=== PATIENT | male | born 1980 | race African-American/Black ===

== ENCOUNTER 2017-03-17 10:44 | Emergency (ER) | payer BC, OTHER ==
[~2017-03-17] VITALS: Ht 195.6 cm; Wt 152.0 kg
[~2017-03-17 10:44] MED LIST: ZOFRAN ODT4 MG ORAL
[2017-03-17 10:58] VITALS: BP 116/80
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
[2017-03-17] MEDS ORDERED: IBUPROFEN600 MG ORAL (11:17)
[2017-03-17] MEDS ORDERED: TRAMADOL HCL50 MG ORAL (11:17)
[2017-03-17 11:23] VITALS: BP 116/80
== END 2017-03-17 11:27 | disposition home or self-care (01) ==
LOC: EMR 11:06
DX: S13.4XXA Sprain of ligaments of cervical spine, initial encounter (principal); S39.012A Strain of muscle, fascia and tendon of lower back, initial encounter; V43.52XA Car driver injured in collision with other type car in traffic accident, initial encounter; Y92.410 Unspecified street and highway as the place of occurrence of the external cause
CPT/HCPCS: 99284

== ENCOUNTER 2019-02-15 09:57 | Emergency (ER) | payer MEDICAID, OTHER ==
[~2019-02-15] VITALS: Ht 195.6 cm; Wt 154.2 kg
[~2019-02-15 09:57] MED LIST changes: +IBUPROFEN600 MG ORAL; +TRAMADOL HCL50 MG ORAL
[2019-02-15] MEDS ORDERED: NKM (10:06)
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
[2019-02-15 10:12] VITALS: BP 124/76
[2019-02-15] MEDS ORDERED: ROBAXIN-750750 MG PO (10:29)
[2019-02-15 10:33] VITALS: BP 122/74
--- NOTE | 2019-02-15 10:34 | NUR ---
ED Nurse Note: PT SITTING PEACEFULLY IN BED IN NAD. AOX4. PRESCRIPTION AND DISCHARGE PAPERWORK EXPLAINED TO PT. PT VERBALIZES UNDERSTANDING AND ALL QUESTIONS ANSWERED. PRESCRIPTION SENT ELECTRONICALLY TO PT'S PHARMACY. DISCHARGE PAPERWORK GIVEN TO PT AND ID WRISTBAND REMOVED. PT WALKED OUT OF ER WITH STEADY GAIT AND ALL BELONGINGS.
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
== END 2019-02-15 10:40 | disposition home or self-care (01) ==
LOC: EMR 10:36
DX: S16.1XXA Strain of muscle, fascia and tendon at neck level, initial encounter (principal); V49.9XXA Car occupant (driver) (passenger) injured in unspecified traffic accident, initial encounter; Y92.410 Unspecified street and highway as the place of occurrence of the external cause
CPT/HCPCS: 99282

== ENCOUNTER 2019-03-23 13:46 | Emergency (ER) | payer MEDICAID ==
[~2019-03-23] VITALS: Ht 195.6 cm; Wt 136.1 kg
[~2019-03-23 13:46] MED LIST changes: +NKM; +ROBAXIN-750750 MG PO
[2019-03-23 14:00] VITALS: BP 136/82
[2019-03-23] MEDS ORDERED: Tetanus/Diptheria/Pertussis IM ONE (14:30)
--- NOTE | 2019-03-23 14:41 | Emergency Room Report ---
History of Present Illness General Chief Complaint: Puncture Wound Source: Patient Present Illness HPI 38-year-old male presents to the emergency department complaining of 3 out of 10 severity localized pain to the bottom of the foot status post stepping on a maday nail while barefoot yesterday. Patient states he is not up-to-date with tetanus vaccination he denies bleeding at this time. Patient denies any blood thinning medications he reports tenderness upon palpation and mild exacerbation with walking. Allergies: Coded Allergies: NO KNOWN ALLERGIES (Unverified Allergy, Unknown, 08/21/15) Patient History Past Medical History: see triage record Past Surgical History: none Pertinent Family History: none Immunizations: other - not utd Reviewed Nursing Documentation: PMH: Agreed; PSxH: Agreed Nursing Documentation-PMH Past Medical History: No History, Except For Hx Diabetes: Yes - PRE DM Review of Systems All Other Systems: negative except mentioned in HPI Physical Exam Vital Signs Date Time Temp Pulse Resp B/P (MAP) Pulse Ox O2 Delivery O2 Flow Rate FiO2 03/23/19 14:00 98.2 60 16 136/82 94 Room Air Sp02 EP Interpretation: reviewed, normal General Appearance: no apparent distress, alert, GCS 15, non-toxic Head: normocephalic, atraumatic Eyes: bilateral eye normal inspection, bilateral eye PERRL ENT: hearing grossly normal, normal voice Neck: full range of motion Respiratory: lungs clear, normal breath sounds, speaking full sentences Cardiovascular #1: regular rate, rhythm Musculoskeletal: back normal, gait/station normal, normal range of motion, non- tender Neurologic: alert, oriented x3, responsive, motor strength/tone normal, sensory intact, speech normal, grossly normal Psychiatric: judgement/insight normal Skin: other - small 0.5 mm puncture wound with dry blood to the plantar aspect of the right foot. mild erythema surrounding, no warmth. Medical Decision Making PA Attestation Dr. Hartley is my supervising Physician whom patient management has been discussed with. Diagnostic Impression: Primary Impression: Puncture wound ER Course 38-year-old male presents to the emergency department complaining of 3 out of 10 severity localized pain to the bottom of the foot status post stepping on a maday nail while barefoot yesterday. Patient states he is not up-to-date with tetanus vaccination he denies bleeding at this time. Patient denies any blood thinning medications he reports tenderness upon palpation and mild exacerbation with walking. Ddx considered but are not limited to foreign body, tendon injury, cellulitis, Vital signs: are WNL, pt. is afebrile H&PE are most consistent with: Puncture wound of bottom of the right foot. no evidence of foreign body ORDERS: none required at this time, the diagnosis is clinical ED INTERVENTIONS: -Tetanus vaccine was administered as pt. vaccination status was unknown. - The wound was copiously irrigated with normal saline, and explored for foreign body for which no FB was found. - Discussed with patient that we will be treating him with oral antibiotics. DISCHARGE: At this time pt. is stable for d/c to home. Will provide printed patient care instructions, and any necessary prescriptions. Care plan and follow up instructions have been discussed with the patient prior to discharge. Last Vital Signs Date Time Temp Pulse Resp B/P (MAP) Pulse Ox O2 Delivery O2 Flow Rate FiO2 03/23/19 14:00 98.2 60 16 136/82 (100) 94 Room Air Disposition: HOME, SELF-CARE Condition: Stable Scripts Bacitracin/Polymyxin B Sulfate (BACITRACIN-POLYMYXIN OINTMENT) 28.35 Gm Oint...g. 1 APPLIC TP BID, #28.3 GM Prov: Tosha Rosa 03/23/19 Cephalexin* (KEFLEX*) 500 Mg Capsule 500 MG ORAL EVERY 12 HOURS for 7 Days, #14 CAP 0 Refills Prov: Tosha Rosa 03/23/19 Patient Instructions: Puncture Wound Additional Instructions: Take medications as directed. Follow up with a Primary Care Provider in 3-5 days, even if your symptoms have resolved. --Please review list of primary care clinics, if you do not already have a primary care provider Return sooner to ED if new symptoms occur, or current symptoms become worse. - Please note that this Emergency Department Report was dictated using [employer] teacher technology software, occasionally this can lead to erroneous entry secondary to interpretation by the dictation equipment. Tosha Rosa Mar 23, 2019 14:41
[2019-03-23] MEDS ORDERED: CEPHALEXIN500 MG ORAL (14:43)
[2019-03-23] MEDS ORDERED: BACITRACIN-P28.35 GM TP (14:43)
[2019-03-23] MEDS ORDERED: Bacitracin Oint UD TOPIC ONE (14:45)
[2019-03-23 14:51] VITALS: BP 128/69
--- NOTE | 2019-03-23 14:51 | NUR ---
ER DISCHARGE NOTE: Patient is cleared to be discharged per PA, pt is aox4, on room air, with stable vital signs. pt was given dc and prescription instructions, pt was able to verbalize understanding, pt id band removed. pt is able to ambulate with steady gait. pt took all belongings.
== END 2019-03-23 14:51 | disposition home or self-care (01) ==
LOC: EMR 14:40
DX: S91.331A Puncture wound without foreign body, right foot, initial encounter (principal); R73.03 Prediabetes; Z23 Encounter for immunization; W45.0XXA Nail entering through skin, initial encounter; Y92.9 Unspecified place or not applicable
CPT/HCPCS: 90471; 90715; 99283

== ENCOUNTER 2020-11-25 21:04 | Inpatient (IN) | payer MEDICAID, OTHER ==
[~2020-11-25] VITALS: Ht 195.6 cm; Wt 149.7 kg
[~2020-11-25 21:04] MED LIST changes: +BACITRACIN-P28.35 GM TP; +CEPHALEXIN500 MG ORAL
--- NOTE | 2020-11-25 21:27 | Emergency Room Report ---
History of Present Illness General Chief Complaint: Lower Extremity Injury Present Illness HPI Patient is a 40-year-old male who presents for increased right-sided lower extremity discomfort. Reports having pain to his groin area. Denies any recent trauma. Reports having prior history of deep venous thrombosis. States he is not taking any medications currently. Denies any other locations of pain. Denies taking any medications regularly. 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 (Lee Salazar MD) Patient History Past Medical History: see triage record Reviewed Nursing Documentation: PMH: Agreed; PSxH: Agreed (Lee Salazar MD) Nursing Documentation-PMH Hx Diabetes: Yes - PRE DM (Lee Salazar MD) Review of Systems All Other Systems: negative except mentioned in HPI (Lee Salazar MD) Physical Exam Vital Signs Date Time Temp Pulse Resp B/P (MAP) Pulse Ox O2 Delivery O2 Flow Rate FiO2 11/25/20 21:09 98.6 100 18 118/79 (92) 96 Room Air Sp02 EP Interpretation: reviewed, normal General Appearance: normal inspection, well appearing, no apparent distress, alert, GCS 15 Head: atraumatic ENT: normal ENT inspection, hearing grossly normal, normal voice Neck: normal inspection, full range of motion, supple, no bony tend Respiratory: normal inspection, lungs clear, normal breath sounds, no respiratory distress, no retraction, no wheezing Cardiovascular #1: regular rate, rhythm, edema - trace edema to right leg Gastrointestinal: normal inspection, normal bowel sounds, non tender, soft, no guarding, no hernia Genitourinary: no CVA tenderness Musculoskeletal: normal inspection, back normal, normal range of motion Neurologic: alert, motor strength/tone normal, stamping mill tender III-XII nml as tested, oriented x3, responsive, speech normal, normal inspection Psychiatric: normal inspection, judgement/insight normal, mood/affect normal Skin: other - left lower extremity hyperpigmented lesion with skin thickening. (Lee Salazar MD) Medical Decision Making Diagnostic Impression: Primary Impression: DVT (deep venous thrombosis) ER Course Patient presents for right lower extremity discomfort. Differential diagnosis include was not limited to muscle injury, deep venous thrombosis, lymphadenitis among others. Patient has some chronic varicose veins to his lower extremities. There does appear to be some slight increase swelling to the right lower ext remity compared to the left. Patient does not have any evidence of pulmonary embolism and does not have any respiratory difficulty or chest discomfort. Patient was endorsed to Dr. Regan pending ultrasound imaging for possible deep venous thrombosis. Patient with normal oxygen saturation at this time. Will defer final disposition until ultrasound imaging. (Lee Salazar MD) ER Course Patient was signed out to me by the previous physician. Ultrasound of the right lower extremity revealed a large occlusive DVT from proximal femoral vein extending to the popliteal vein. This information was relayed to the patient. He was amenable to admission. He was given a dose of subcutaneous therapeutic dose Lovenox. Admitted to [facility] under the care of Dr. Rodarte. (Luis Regan M.D.) Last Vital Signs Date Time Temp Pulse Resp B/P (MAP) Pulse Ox O2 Delivery O2 Flow Rate FiO2 11/25/20 21:09 98.6 100 18 118/79 (92) 96 Room Air Status: unchanged (Lee Salazar MD) Disposition: ADMITTED INPATIENT Condition: Stable Lee Salazar MD Nov 25, 2020 21:27 Luis Regan M.D. Nov 25, 2020 23:34
[2020-11-25] MEDS ORDERED: IBUPROFEN600 M1 ORAL (22:18)
--- NOTE | 2020-11-25 22:32 | Diagnostic Imaging Report ---
EXAM: US Duplex Right Lower Extremity Veins CLINICAL HISTORY: PAIN TECHNIQUE: Real-time duplex ultrasound scan of the right lower extremity veins integrating B-mode two-dimensional vascular structure, Doppler spectral analysis, color flow Doppler imaging and compression. COMPARISON: No relevant prior studies available. FINDINGS: Deep veins: Large occlusive DVT from proximal femoral vein through popliteal veins. Superficial veins: Unremarkable. No thrombus in the visualized great saphenous vein. Soft tissues: No acute findings. No popliteal cyst. IMPRESSION: Large occlusive DVT from proximal femoral vein through popliteal veins. <MYCVCSECTION> Communications: 11/25/20 22:36 Call Doctor Regarding Acute DVT, called Dr. Bowser on 11/25 22:36 (-07:00)
--- NOTE | 2020-11-25 22:50 | NUR ---
ED Nurse Note: BLOOD COLLECTED AND SENT TO LAB
[2020-11-25 23:12] LABS: BASOPHILS % (AUTO) 0.8 % (0.0-2.0); EOSINOPHILS % (AUTO) 1.7 % (0.0-3.0); HEMATOCRIT 52.2 % (42.0-52.0); HEMOGLOBIN 15.4 G/DL (14.2-18.0); LYMPHOCYTES % (AUTO) 19.9 % (20.0-45.0); MEAN CORPUSCULAR VOLUME 84 FL (80-99); MONOCYTES % (AUTO) 9.6 % (1.0-10.0); PLATELET COUNT 177 K/UL (150-450); RED BLOOD COUNT 6.22 M/UL (4.70-6.10); RED CELL DISTRIBUTION WIDTH 13.9 % (11.6-14.8); WHITE BLOOD COUNT 11.5 K/UL (4.8-10.8)
[2020-11-25 23:21] LABS: ANION GAP 7 mmol/L (5-15); BLOOD UREA NITROGEN 15 mg/dL (7-18); CALCIUM 9.6 MG/DL (8.5-10.1); CARBON DIOXIDE 31 MMOL/L (21-32); CHLORIDE 102 MMOL/L (98-107); CREATININE 1.4 MG/DL (0.55-1.30); SODIUM 140 MMOL/L (136-145)
[2020-11-25 23:26] LABS: ALANINE AMINOTRANSFERASE 28 U/L (12-78); ALBUMIN 3.4 G/DL (3.4-5.0); ALBUMIN/GLOBULIN RATIO 0.9 (1.0-2.7); ALKALINE PHOSPHATASE 111 U/L (46-116); ASPARTATE AMINO TRANSFERASE 22 U/L (15-37); BILIRUBIN,TOTAL 0.8 MG/DL (0.2-1.0)
[2020-11-25] MEDS: Enoxaparin 120 mg inj SUBQ SCH (23:31)
[2020-11-25 23:46] VITALS: BP 120/68
--- NOTE | 2020-11-25 23:53 | NUR ---
TRANSFER TO FLOOR: Patient transferred to [facility] MED SURG as ordered, per ED MD. Report given to AVINASH LANDIN. Belongings with patient refused offer to put in hospital safe personal belongings form filled and signed, pt aox4, and stable
--- NOTE | 2020-11-26 00:16 | NUR ---
NURSE NOTES: paged Dr Rodarte for admission orders. Awaiting call back. Patient stable, no s/s of acute distress, VSS. Enoxaparin ED order to be administered on floor.
[2020-11-26 00:20] VITALS: BP 135/87
[2020-11-26] MEDS: Enoxaparin 120 mg inj SUBQ SCH (00:36)
--- NOTE | 2020-11-26 01:55 | NUR ---
NURSE NOTES: Called Dr Rodarte's exchange, awaiting call back for admission orders.
--- NOTE | 2020-11-26 03:45 | NUR ---
NURSE NOTES: Paged Dr Rodarte again through exchange, awaiting call back. Patient desires pain medication at this time.
[2020-11-26 04:00] VITALS: BP 127/88
[2020-11-26] MEDS: Morphine Sulfate 2mg/ml Inj(IV/IM USE ONLY) IVP PRN ×3 (05:50→22:10)
--- NOTE | 2020-11-26 07:27 | NUR ---
NURSE NOTES: Report given to [employer] Ascencio
--- NOTE | 2020-11-26 07:57 | NUR ---
NURSE NOTES: Patient awake and alert and oriented,respirations unlabored.Saline lock left arm in place.Pedal are strong.patient ate breakfast.IV fluids to be started as ordered.Call light within reach.
[2020-11-26 08:00] VITALS: BP 126/79
[2020-11-26] MEDS: D5 1/2NS 1,000 ML IV SCH (09:08)
[2020-11-26 10:11] LABS: BASOPHILS % (AUTO) 0.9 % (0.0-2.0); EOSINOPHILS % (AUTO) 2.9 % (0.0-3.0); HEMATOCRIT 47.3 % (42.0-52.0); HEMOGLOBIN 14.7 G/DL (14.2-18.0); LYMPHOCYTES % (AUTO) 27.5 % (20.0-45.0); MEAN CORPUSCULAR VOLUME 84 FL (80-99); MONOCYTES % (AUTO) 11.5 % (1.0-10.0); NEUTROPHILS % (AUTO) 57.3 % (45.0-75.0); PLATELET COUNT 176 K/UL (150-450); RED BLOOD COUNT 5.61 M/UL (4.70-6.10); RED CELL DISTRIBUTION WIDTH 13.4 % (11.6-14.8); WHITE BLOOD COUNT 8.6 K/UL (4.8-10.8)
[2020-11-26 10:23] LABS: INR 1.1 (0.9-1.1)
[2020-11-26 10:40] LABS: ANION GAP 6 mmol/L (5-15); BLOOD UREA NITROGEN 14 mg/dL (7-18); CARBON DIOXIDE 29 MMOL/L (21-32); CHLORIDE 105 MMOL/L (98-107); CREATININE 1.2 MG/DL (0.55-1.30); POTASSIUM 3.8 MMOL/L (3.5-5.1); SODIUM 140 MMOL/L (136-145)
[2020-11-26] MEDS: Enoxaparin Sodium 300mg/3ml vial SUBQ SCH ×2 (10:49→20:32)
[2020-11-26] MEDS ORDERED: Mylanta II UD 30ml ORAL PRN (11:30)
[2020-11-26] MEDS ORDERED: Milk of Magnesia 30ml Ud ORAL PRN (11:30)
[2020-11-26 12:00] VITALS: BP 119/62
--- NOTE | 2020-11-26 12:39 | NUR ---
INSURANCE CLINICALS FAXED TO [facility] PPO REF [phone] [facility] [phone] FAX [phone]
--- NOTE | 2020-11-26 13:12 | Consultation ---
History of Present Illness General Chief Complaint: Lower Extremity Injury Present Illness Allergies: Coded Allergies: NO KNOWN ALLERGIES (Unverified Allergy, Unknown, 08/21/15) Medication History Scheduled Bacitracin/Polymyxin B Sulfate (Bacitracin-Polymyxin Ointment), 1 APPLIC TP BID Cephalexin* (Keflex*), 500 MG ORAL EVERY 12 HOURS Methocarbamol* (Robaxin-750*), 750 MG PO TID No Known Medications* (NKM - No Known Medications*), 0 ., (Reported) Scheduled PRN Ibuprofen (Motrin), 600 MG ORAL Q6H PRN for For Pain Ibuprofen* (Motrin*), 600 MG ORAL Q8H PRN for FOR PAIN Ondansetron Odt* (Zofran Odt*), 4 MG ORAL Q6H PRN for Nausea & Vomiting Tramadol Hcl* (Ultram*), 50 MG ORAL Q6H PRN for For Pain Patient History Healthcare decision maker Resuscitation status Advanced Directive on File Physical Exam Last 24 Hour Vital Signs Date Time Temp Pulse Resp B/P (MAP) Pulse Ox O2 Delivery O2 Flow Rate FiO2 11/26/20 09:00 Room Air 11/26/20 08:00 98.7 85 18 126/79 (95) 95 11/26/20 06:20 97.3 11/26/20 04:00 97.3 71 19 127/88 (101) 98 11/26/20 01:06 Room Air 11/26/20 00:20 97.7 75 20 135/87 (103) 98 11/25/20 23:46 98.6 20 120/68 100 11/25/20 21:09 98.6 100 18 118/79 (92) 96 Room Air Intake and Output 11/25/20 11/26/20 19:00 07:00 Intake Total 150 ml Balance 150 ml Intake Oral 150 ml # Voids 2 Laboratory Tests Test 11/25/20 22:50 11/26/20 09:20 White Blood Count 11.5 K/UL (4.8-10.8) H 8.6 K/UL (4.8-10.8) Red Blood Count 6.22 M/UL (4.70-6.10) H 5.61 M/UL (4.70-6.10) Hemoglobin 15.4 G/DL (14.2-18.0) 14.7 G/DL (14.2-18.0) Hematocrit 52.2 % (42.0-52.0) H 47.3 % (42.0-52.0) Mean Corpuscular Volume 84 FL (80-99) 84 FL (80-99) Mean Corpuscular Hemoglobin 24.8 PG (27.0-31.0) L 26.2 PG (27.0-31.0) L Mean Corpuscular Hemoglobin Concent 29.5 G/DL (32.0-36.0) L 31.1 G/DL (32.0-36.0) L Red Cell Distribution Width 13.9 % (11.6-14.8) 13.4 % (11.6-14.8) Platelet Count 177 K/UL (150-450) 176 K/UL (150-450) Mean Platelet Volume 6.7 FL (6.5-10.1) 7.0 FL (6.5-10.1) Neutrophils (%) (Auto) 68.0 % (45.0-75.0) 57.3 % (45.0-75.0) Lymphocytes (%) (Auto) 19.9 % (20.0-45.0) L 27.5 % (20.0-45.0) Monocytes (%) (Auto) 9.6 % (1.0-10.0) 11.5 % (1.0-10.0) H Eosinophils (%) (Auto) 1.7 % (0.0-3.0) 2.9 % (0.0-3.0) Basophils (%) (Auto) 0.8 % (0.0-2.0) 0.9 % (0.0-2.0) Sodium Level 140 MMOL/L (136-145) 140 MMOL/L (136-145) Potassium Level 4.0 MMOL/L (3.5-5.1) 3.8 MMOL/L (3.5-5.1) Chloride Level 102 MMOL/L (98-107) 105 MMOL/L (98-107) Carbon Dioxide Level 31 MMOL/L (21-32) 29 MMOL/L (21-32) Anion Gap 7 mmol/L (5-15) 6 mmol/L (5-15) Blood Urea Nitrogen 15 mg/dL (7-18) 14 mg/dL (7-18) Creatinine 1.4 MG/DL (0.55-1.30) H 1.2 MG/DL (0.55-1.30) Estimat Glomerular Filtration Rate > 60 mL/min (>60) > 60 mL/min (>60) Glucose Level 98 MG/DL (74-106) 97 MG/DL (74-106) Calcium Level 9.6 MG/DL (8.5-10.1) 9.0 MG/DL (8.5-10.1) Total Bilirubin 0.8 MG/DL (0.2-1.0) Aspartate Amino Transf (AST/SGOT) 22 U/L (15-37) Alanine Aminotransferase (ALT/SGPT) 28 U/L (12-78) Alkaline Phosphatase 111 U/L (46-116) Total Protein 7.3 G/DL (6.4-8.2) Albumin 3.4 G/DL (3.4-5.0) Globulin 3.9 g/dL Albumin/Globulin Ratio 0.9 (1.0-2.7) L Prothrombin Time 12.2 SEC (9.30-11.50) H Prothromb Time International Ratio 1.1 (0.9-1.1) Activated Partial Thromboplast Time 30 SEC (23-33) Height (Feet): 6 Height (Inches): 5.00 Weight (Pounds): 330 Medications Current Medications Medications (Trade) Dose Ordered Sig/Calos Route PRN Reason Start Time Stop Time Status Last Admin Dose Admin Acetaminophen (Tylenol) 650 mg Q4H PRN ORAL Temp >100.5 11/26/20 11:30 12/26/20 11:29 Acetaminophen/ Hydrocodone Bitart ([place] 5/325) 1 tab Q4H PRN ORAL Moderate Pain (Pain Scale 4-6) 11/26/20 11:30 12/03/20 11:29 Al Hydroxide/Mg Hydroxide (Mylanta II) 30 ml Q6H PRN ORAL dyspepsia 11/26/20 11:30 12/26/20 11:29 Dextrose (Dextrose 50%) 25 ml Q30M PRN IV Hypoglycemia 11/26/20 11:30 02/24/21 11:29 Dextrose (Dextrose 50%) 50 ml Q30M PRN IV Hypoglycemia 11/26/20 11:30 02/24/21 11:29 Dextrose/Sodium Chloride 1,000 ml @ 60 mls/hr [id number] IV 11/26/20 08:00 12/26/20 07:59 11/26/20 09:08 Diphenhydramine HCl (Benadryl) 25 mg Q6H PRN ORAL Itching 11/26/20 11:30 12/26/20 11:29 Docusate Sodium (Colace) 100 mg TWICE A DAY ORAL 11/26/20 18:00 12/26/20 17:59 Enoxaparin Sodium (Lovenox) 150 mg EVERY 12 HOURS SUBQ 11/26/20 09:00 02/24/21 08:59 11/26/20 10:49 Famotidine (Pepcid) 20 mg DAILY ORAL 11/27/20 09:00 02/25/21 08:59 Magnesium Hydroxide (Mom) 30 ml HSPRN PRN ORAL Constipation 11/26/20 11:30 12/26/20 11:29 Morphine Sulfate (Morphine Sulfate) 2 mg Q4H PRN IVP For Pain 11/26/20 05:45 12/03/20 05:44 11/26/20 05:50 Ondansetron HCl (Zofran) 4 mg Q6H PRN IVP Nausea & Vomiting 11/26/20 11:30 12/26/20 11:29 Temazepam (Restoril) 15 mg HSPRN PRN ORAL Insomnia 11/26/20 11:30 12/03/20 11:29 Assessment/Plan Assessment/Plan: Hematology Consultation RESteve MD: Monica Rodarte C: Dvt of lower leg DOS: 11/26/2020 ID Patient is a 40-year-old male who presents for increased right-sided lower extremity discomfort. Reports having pain to his groin area. Denies any recent trauma. Reports having prior history of deep venous thrombosis. States he is not taking any medications currently. Denies any other locations of pain. Denies taking any medications regularly. With a dvt on that leg, have started on lovenox bid therapy Allergies: NO KNOWN ALLERGIES (Unverified Allergy, Unknown, 08/21/15) COVID-19 Screening Contact w/high risk pt: No Experienced COVID-19 symptoms?: No COVID-19 Testing performed PARLOR MAID: No Patient History Past Medical History: see triage record Reviewed Nursing Documentation: PMH: Agreed; PSxH: Agreed Nursing Documentation-PMH Hx Diabetes: Yes - PRE DM Review of Systems All Other Systems: negative except mentioned in HPI Physical Exam Sp02 EP Interpretation: reviewed, normal General Appearance: normal inspection, well appearing Head: atraumatic ENT: normal ENT inspection, hearing grossly normal, normal voice Neck: normal inspection, full range of motion, supple, no bony tend Respiratory: normal inspection, lungs clear, normal breath sounds Cardiovascular: regular rate, rhythm, no edema Gastrointestinal: normal inspection Genitourinary: no CVA tenderness Musculoskeletal: normal inspection, back normal, normal range of motion Neurologic: alert, motor strength/tone normal, die equipment operator III-XII Psychiatric: normal inspection, judgement/insight normal Labs: reviewed Imaging: noted Assessment and recs # DVT (deep venous thrombosis) proximal femoral vein extending to the popliteal vein, 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 --> There does appear to be some slight increase swelling to the right lower extremity compared to the left. Patient does not have any evidence of pulmonary embolism and does not have any respiratory difficulty or chest discomfort # Obesity --> recommend weight loss # Dvt ppx lovenox bid Appreciate consultation and dw Zane Cornelius MD Nov 26, 2020 13:11
[2020-11-26 13:17] LABS: APPEARANCE,URINE CLEAR; BILIRUBIN, URINE NEGATIVE (NEGATIVE); COLOR,URINE PALE YELLOW; GLUCOSE, URINE (UA) NEGATIVE (NEGATIVE); KETONES,URINE NEGATIVE (NEGATIVE); LEUKOCYTE ESTERASE ,URINE NEGATIVE (NEGATIVE); NITRITE,URINE NEGATIVE (NEGATIVE); PH,URINE 6.5 (4.5-8.0); PROTEIN,URINE NEGATIVE (NEGATIVE); UROBILINOGEN,URINE NORMAL MG/DL (0.0-1.0)
--- NOTE | 2020-11-26 15:59 | History and Physical Report ---
DATE OF ADMISSION: 11/25/2020 DATE AND TIME SEEN: 11/26/2020, approximate time is 2 p.m. CONSULTANTS: Talib Cohen MD. CHIEF COMPLAINT: Groin pain and DVT. BRIEF HISTORY: The patient is a 40-year-old male, who lives at home, presented with increased right-sided groin pain, came to [facility] last night, diagnosed with DVT, admitted to medical floor. Currently, calm in bed, feeling a little bit better. No chest pain. No shortness of breath. No nausea, vomiting, or diarrhea. PAST MEDICAL HISTORY: Includes history of DVT seven years ago. PAST SURGICAL HISTORY: Bilateral hip surgery. MEDICATIONS: Include famotidine, docusate sodium, , magnesium, Tylenol, temazepam, diphenhydramine, Zofran, hydrocodone, enoxaparin, morphine. ALLERGIES: Denies. SOCIAL HISTORY: No smoking. Positive alcohol. No intravenous drug abuse. FAMILY HISTORY: Noncontributory. PHYSICAL EXAMINATION: GENERAL: Calm in bed, oriented x3, no acute distress. VITAL SIGNS: Temperature is 98 degrees, pulse 85, respirations 18, blood pressure 126/79. CARDIOVASCULAR: No murmur. LUNGS: Distant and clear. ABDOMEN: Bowel sounds distant. Nontender and nondistended. EXTREMITIES: No cyanosis, clubbing, or edema. NEUROLOGIC: The patient moves all extremities, slightly weak. LABORATORY AND DIAGNOSTIC DATA: Labs at this time show white count initially 11.5 today, CBC is normal. BMP is normal. INR is 1.1. PTT is 30. Urinalysis is normal. Urine tox is negative. ASSESSMENT: DVT, groin and hip pain. PLAN: Anticoagulating. Pain control. Hematology followup. Continue to follow this patient. Clement Rodarte D.O. DR: BUZZ/TEA JOB#: [id number] CC:
[2020-11-26 16:00] VITALS: BP 113/78
[2020-11-26] MEDS: Docusate 100mg cap ORAL SCH (17:31)
--- NOTE | 2020-11-26 18:50 | NUR ---
NURSE NOTES: Patient resting,IV fluids continue to infuse as ordered.Pedal pulse remains strong.Call light within reach.
--- NOTE | 2020-11-26 19:05 | NUR ---
NURSE HAND-OFF: Kanu LANDIN Important Events on Shift:[medicated for pain.] Patient Status: []uneventful Diet: [regular] Pending Orders: [11/27 chest x-ray. Pending Results/Labs:[] Pending MD notification:[] Latest Vital Signs: Temperature 98.8 , Pulse 77 , B/P 113 /78 , Respiratory Rate 18 , O2 SAT 98 , Room Air, O2 Flow Rate . Vital Sign Comment: [] Latest Byrd Fall Score: 20 Fall Risk: Low Risk Safety Measures: Call light Within Reach, Bed Alarm Zone 2, Side Rails Side Rails x2, Bed position Low and Locked. Fall Precautions: Report given to []. Addendum: 11/26/20 at 1908 by ELIZABETH HA RN RN Labs in AM 11/27
[2020-11-26 20:00] VITALS: BP 122/75
--- NOTE | 2020-11-26 20:00 | NUR ---
NURSE NOTES: Received patient awake in bed, resting, no s/s of acute distress. Patient stated he has been unable to sleep since coming to [facility] [place]. Will administer PRN medications for sleep and pain. Pedal pulses present.
[2020-11-26] MEDS: HYDROcodone/Acetamin 5/325 tab ORAL PRN (20:47)
[2020-11-27] MEDS: D5 1/2NS 1,000 ML IV SCH ×2 (00:58→15:16)
[2020-11-27] MEDS: Morphine Sulfate 2mg/ml Inj(IV/IM USE ONLY) IVP PRN ×2 (02:49→23:31)
[2020-11-27 06:31] LABS: BASOPHILS % (AUTO) 0.8 % (0.0-2.0); EOSINOPHILS % (AUTO) 1.6 % (0.0-3.0); HEMATOCRIT 47.6 % (42.0-52.0); HEMOGLOBIN 14.7 G/DL (14.2-18.0); LYMPHOCYTES % (AUTO) 23.7 % (20.0-45.0); MEAN CORPUSCULAR VOLUME 84 FL (80-99); MONOCYTES % (AUTO) 12.9 % (1.0-10.0); NEUTROPHILS % (AUTO) 61.2 % (45.0-75.0); PLATELET COUNT 184 K/UL (150-450); RED BLOOD COUNT 5.68 M/UL (4.70-6.10); RED CELL DISTRIBUTION WIDTH 13.1 % (11.6-14.8); WHITE BLOOD COUNT 9.1 K/UL (4.8-10.8)
[2020-11-27 06:35] LABS: INR 1.1 (0.9-1.1)
[2020-11-27 06:51] LABS: ALANINE AMINOTRANSFERASE 21 U/L (12-78); ALBUMIN 2.7 G/DL (3.4-5.0); ALBUMIN/GLOBULIN RATIO 0.8 (1.0-2.7); ALKALINE PHOSPHATASE 92 U/L (46-116); ANION GAP 7 mmol/L (5-15); ASPARTATE AMINO TRANSFERASE 14 U/L (15-37); BILIRUBIN,TOTAL 0.7 MG/DL (0.2-1.0); BLOOD UREA NITROGEN 11 mg/dL (7-18); CALCIUM 8.7 MG/DL (8.5-10.1); CARBON DIOXIDE 27 MMOL/L (21-32); CHLORIDE 104 MMOL/L (98-107); CHOLESTEROL 170 MG/DL (< 200); CREATININE 1.2 MG/DL (0.55-1.30); HDL CHOLESTEROL 43 MG/DL (40-60); SODIUM 138 MMOL/L (136-145); TRIGLYCERIDES 55 MG/DL (30-150)
--- NOTE | 2020-11-27 06:55 | Hematology/Onc Progress Note ---
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 --> There does appear to be some slight increase swelling to the right lower extremity compared to the left. Patient does not have any evidence of pulmonary embolism and does not have any respiratory difficulty or chest discomfort # Obesity --> recommend weight loss # Dvt ppx lovenox bid Appreciate consultation and christina Rn Subjective Constitutional: Denies: no symptoms, chills, fever, malaise, weakness, other HEENT: Denies: no symptoms, eye pain, blurred vision, tearing, double vision, ear pain, ear discharge, nose pain, nose congestion, throat pain, throat swelling, mouth pain, mouth swelling, other Cardiovascular: Denies: no symptoms, chest pain, edema, irregular heart rate, lightheadedness, palpitations, syncope, other Respiratory: Denies: no symptoms, cough, shortness of breath, SOB with excertion, SOB at rest, sputum, wheezing, other Gastrointestinal/Abdominal: Denies: no symptoms, abdomen distended, abdominal pain, black stools, tarry stools, blood in stool, constipated, diarrhea, difficulty swallowing, nausea, poor appetite, poor fluid intake, rectal bleeding, vomiting, other Genitourinary: Denies: no symptoms, burning, discharge, frequency, flank pain, hematuria, incontinence, pain, urgency, other Neurologic/Psychiatric: Denies: no symptoms, anxiety, depressed, emotional problems, headache, numbness, paresthesia, pre-existing deficit, seizure, tingling, tremors, weakness, other Endocrine: Denies: no symptoms, excessive sweating, flushing, intolerance to cold, intolerance to heat, increased hunger, increased thirst, increased urine, unexplained weight gain, unexplained weight loss, other Allergies: Coded Allergies: NO KNOWN ALLERGIES (Unverified Allergy, Unknown, 08/21/15) Subjective 11/27 unable to sleep overnight, meds reviewed, on lovenox Objective Objective Current Medications Medications (Trade) Dose Ordered Sig/Calos Route PRN Reason Start Time Stop Time Status Last Admin Dose Admin Acetaminophen (Tylenol) 650 mg Q4H PRN ORAL Temp >100.5 11/26/20 11:30 12/26/20 11:29 Acetaminophen/ Hydrocodone Bitart ([place] 5/325) 1 tab Q4H PRN ORAL Moderate Pain (Pain Scale 4-6) 11/26/20 11:30 12/03/20 11:29 11/26/20 20:47 Al Hydroxide/Mg Hydroxide (Mylanta II) 30 ml Q6H PRN ORAL dyspepsia 11/26/20 11:30 12/26/20 11:29 Dextrose (Dextrose 50%) 25 ml Q30M PRN IV Hypoglycemia 11/26/20 11:30 02/24/21 11:29 Dextrose (Dextrose 50%) 50 ml Q30M PRN IV Hypoglycemia 11/26/20 11:30 02/24/21 11:29 Dextrose/Sodium Chloride 1,000 ml @ 60 mls/hr [id number] IV 11/26/20 08:00 12/26/20 07:59 11/27/20 00:58 Diphenhydramine HCl (Benadryl) 25 mg Q6H PRN ORAL Itching 11/26/20 11:30 12/26/20 11:29 11/27/20 02:54 Docusate Sodium (Colace) 100 mg TWICE A DAY ORAL 11/26/20 18:00 12/26/20 17:59 11/26/20 17:31 Enoxaparin Sodium (Lovenox) 150 mg EVERY 12 HOURS SUBQ 11/26/20 09:00 02/24/21 08:59 11/26/20 20:32 Famotidine (Pepcid) 20 mg DAILY ORAL 11/27/20 09:00 02/25/21 08:59 Magnesium Hydroxide (Mom) 30 ml HSPRN PRN ORAL Constipation 11/26/20 11:30 12/26/20 11:29 Morphine Sulfate (Morphine Sulfate) 2 mg Q4H PRN IVP For Pain 11/26/20 05:45 12/03/20 05:44 11/27/20 02:49 Ondansetron HCl (Zofran) 4 mg Q6H PRN IVP Nausea & Vomiting 11/26/20 11:30 12/26/20 11:29 Temazepam (Restoril) 15 mg HSPRN PRN ORAL Insomnia 11/26/20 11:30 12/03/20 11:29 11/26/20 20:31 Last 24 Hour Vital Signs Date Time Temp Pulse Resp B/P (MAP) Pulse Ox O2 Delivery O2 Flow Rate FiO2 11/27/20 03:19 98.8 11/26/20 22:40 98.8 11/26/20 21:59 Room Air 11/26/20 21:26 98.8 11/26/20 20:00 97.9 75 18 122/75 (91) 98 11/26/20 16:00 98.8 77 18 113/78 (90) 98 11/26/20 12:00 98.8 67 18 119/62 (81) 94 11/26/20 09:00 Room Air 11/26/20 08:00 98.7 85 18 126/79 (95) 95 11/26/20 06:20 97.3 11/26/20 04:00 97.3 71 19 127/88 (101) 98 11/26/20 01:06 Room Air 11/26/20 00:20 97.7 75 20 135/87 (103) 98 11/25/20 23:46 98.6 20 120/68 100 11/25/20 21:09 98.6 100 18 118/79 (92) 96 Room Air Intake and Output 11/26/20 11/27/20 19:00 07:00 Intake Total 960 ml 450 ml Output Total 1850 ml 850 ml Balance -890 ml -400 ml Intake Oral 360 ml 450 ml IV Total 600 ml Output Urine Total 1850 ml 850 ml Labs Test 11/25/20 22:50 11/26/20 09:20 11/26/20 12:20 11/27/20 05:50 White Blood Count 11.5 K/UL (4.8-10.8) 8.6 K/UL (4.8-10.8) Red Blood Count 6.22 M/UL (4.70-6.10) 5.61 M/UL (4.70-6.10) Hemoglobin 15.4 G/DL (14.2-18.0) 14.7 G/DL (14.2-18.0) Hematocrit 52.2 % (42.0-52.0) 47.3 % (42.0-52.0) Mean Corpuscular Volume 84 FL (80-99) 84 FL (80-99) Mean Corpuscular Hemoglobin 24.8 PG (27.0-31.0) 26.2 PG (27.0-31.0) Mean Corpuscular Hemoglobin Concent 29.5 G/DL (32.0-36.0) 31.1 G/DL (32.0-36.0) Red Cell Distribution Width 13.9 % (11.6-14.8) 13.4 % (11.6-14.8) Platelet Count 177 K/UL (150-450) 176 K/UL (150-450) Mean Platelet Volume 6.7 FL (6.5-10.1) 7.0 FL (6.5-10.1) Neutrophils (%) (Auto) 68.0 % (45.0-75.0) 57.3 % (45.0-75.0) Lymphocytes (%) (Auto) 19.9 % (20.0-45.0) 27.5 % (20.0-45.0) Monocytes (%) (Auto) 9.6 % (1.0-10.0) 11.5 % (1.0-10.0) Eosinophils (%) (Auto) 1.7 % (0.0-3.0) 2.9 % (0.0-3.0) Basophils (%) (Auto) 0.8 % (0.0-2.0) 0.9 % (0.0-2.0) Sodium Level 140 MMOL/L (136-145) 140 MMOL/L (136-145) Potassium Level 4.0 MMOL/L (3.5-5.1) 3.8 MMOL/L (3.5-5.1) Chloride Level 102 MMOL/L (98-107) 105 MMOL/L (98-107) Carbon Dioxide Level 31 MMOL/L (21-32) 29 MMOL/L (21-32) Anion Gap 7 mmol/L (5-15) 6 mmol/L (5-15) Blood Urea Nitrogen 15 mg/dL (7-18) 14 mg/dL (7-18) Creatinine 1.4 MG/DL (0.55-1.30) 1.2 MG/DL (0.55-1.30) Estimat Glomerular Filtration Rate > 60 mL/min (>60) > 60 mL/min (>60) Glucose Level 98 MG/DL (74-106) 97 MG/DL (74-106) Calcium Level 9.6 MG/DL (8.5-10.1) 9.0 MG/DL (8.5-10.1) Total Bilirubin 0.8 MG/DL (0.2-1.0) Aspartate Amino Transf (AST/SGOT) 22 U/L (15-37) Alanine Aminotransferase (ALT/SGPT) 28 U/L (12-78) Alkaline Phosphatase 111 U/L (46-116) Total Protein 7.3 G/DL (6.4-8.2) Albumin 3.4 G/DL (3.4-5.0) Globulin 3.9 g/dL Albumin/Globulin Ratio 0.9 (1.0-2.7) Prothrombin Time 12.2 SEC (9.30-11.50) Prothromb Time International Ratio 1.1 (0.9-1.1) Activated Partial Thromboplast Time 30 SEC (23-33) Urine Color Pale yellow Urine Appearance Clear Urine pH 6.5 (4.5-8.0) Urine Specific [place] 1.005 (1.005-1.035) Urine Protein Negative (NEGATIVE) Urine Glucose (UA) Negative (NEGATIVE) Urine Ketones Negative (NEGATIVE) Urine Blood Negative (NEGATIVE) Urine Nitrite Negative (NEGATIVE) Urine Bilirubin Negative (NEGATIVE) Urine Urobilinogen Normal MG/DL (0.0-1.0) Urine Leukocyte Esterase Negative (NEGATIVE) Urine RBC 0-2 /HPF (0 - 0) Urine WBC 0-2 /HPF (0 - 0) Urine Squamous Epithelial Cells None /LPF (NONE/OCC) Urine Bacteria None /HPF (NONE) Urine Opiates Screen Negative (NEGATIVE) Urine Barbiturates Screen Negative (NEGATIVE) Phencyclidine (PCP) Screen Negative (NEGATIVE) Urine Amphetamines Screen Negative (NEGATIVE) Urine Benzodiazepines Screen Negative (NEGATIVE) Urine Cocaine Screen Negative (NEGATIVE) Urine Marijuana (THC) Screen Negative (NEGATIVE) Lactic Acid Level 0.60 mmol/L (0.4-2.0) Height (Feet): 6 Height (Inches): 5.00 Weight (Pounds): 330 Objective Physical Exam Sp02 EP Interpretation: reviewed, normal General Appearance: normal inspection, well appearing Head: atraumatic ENT: normal ENT inspection, hearing grossly normal, normal voice Neck: normal inspection, full range of motion, supple, no bony tend Respiratory: normal inspection, lungs clear, normal breath sounds Cardiovascular: regular rate, rhythm, no edema Gastrointestinal: normal inspection Genitourinary: no CVA tenderness Musculoskeletal: normal inspection, back normal, normal range of motion Neurologic: alert, motor strength/tone normal, stockholder III-XII Psychiatric: normal inspection, judgement/insight normal Zane Cohen MD Nov 27, 2020 06:55
[2020-11-27 08:00] VITALS: BP 130/76
--- NOTE | 2020-11-27 08:35 | NUR ---
RADIOLOGY DEPT., CHEST X-RAY DONE.-P.DYE
[2020-11-27] MEDS ORDERED: Enoxaparin 100mg Inj SUBQ SCH (09:00)
[2020-11-27] MEDS ORDERED: Enoxaparin 60mg Inj SUBQ SCH (09:00)
--- NOTE | 2020-11-27 09:17 | General Progress Note ---
Subjective Constitutional: Reports: weakness Allergies: Coded Allergies: NO KNOWN ALLERGIES (Unverified Allergy, Unknown, 08/21/15) All Systems: reviewed and negative except above Subjective sl groin pain Objective Last 24 Hour Vital Signs Date Time Temp Pulse Resp B/P (MAP) Pulse Ox O2 Delivery O2 Flow Rate FiO2 11/27/20 08:00 97.9 80 18 130/76 (94) 96 11/27/20 03:19 98.8 11/26/20 22:40 98.8 11/26/20 21:59 Room Air 11/26/20 21:26 98.8 11/26/20 20:00 97.9 75 18 122/75 (91) 98 11/26/20 16:00 98.8 77 18 113/78 (90) 98 11/26/20 12:00 98.8 67 18 119/62 (81) 94 Intake and Output 11/26/20 11/27/20 19:00 07:00 Intake Total 960 ml 450 ml Output Total 1850 ml 850 ml Balance -890 ml -400 ml Intake Oral 360 ml 450 ml IV Total 600 ml Output Urine Total 1850 ml 850 ml Laboratory Tests 11/26/20 09:20: White Blood Count 8.6, Red Blood Count 5.61, Hemoglobin 14.7, Hematocrit 47.3, Mean Corpuscular Volume 84, Mean Corpuscular Hemoglobin 26.2L, Mean Corpuscular Hemoglobin Concent 31.1L, Red Cell Distribution Width 13.4, Platelet Count 176, Mean Platelet Volume 7.0, Neutrophils (%) (Auto) 57.3, Lymphocytes (%) (Auto) 27.5, Monocytes (%) (Auto) 11.5H, Eosinophils (%) (Auto) 2.9, Basophils (%) (Auto) 0.9, Prothrombin Time 12.2H, Prothromb Time International Ratio 1.1, Activated Partial Thromboplast Time 30, Sodium Level 140, Potassium Level 3.8, Chloride Level 105, Carbon Dioxide Level 29, Anion Gap 6, Blood Urea Nitrogen 14, Creatinine 1.2, Estimat Glomerular Filtration Rate > 60, Glucose Level 97, Calcium Level 9.0 11/26/20 12:20: Urine Color Pale yellow, Urine Appearance Clear, Urine pH 6.5, Urine Specific [place] 1.005, Urine Protein Negative, Urine Glucose (UA) Negative, Urine Ketones Negative, Urine Blood Negative, Urine Nitrite Negative, Urine Bilirubin Negative, Urine Urobilinogen Normal, Urine Leukocyte Esterase Negative, Urine RBC 0-2H, Urine WBC 0-2, Urine Squamous Epithelial Cells None, Urine Bacteria None, Urine Opiates Screen Negative, Urine Barbiturates Screen Negative, Phencyclidine (PCP) Screen Negative, Urine Amphetamines Screen Negative, Urine Benzodiazepines Screen Negative, Urine Cocaine Screen Negative, Urine Marijuana (THC) Screen Negative 11/27/20 05:50: White Blood Count 9.1, Red Blood Count 5.68, Hemoglobin 14.7, Hematocrit 47.6, Mean Corpuscular Volume 84, Mean Corpuscular Hemoglobin 25.9L, Mean Corpuscular Hemoglobin Concent 31.0L, Red Cell Distribution Width 13.1, Platelet Count 184, Mean Platelet Volume 6.6, Neutrophils (%) (Auto) 61.2, Lymphocytes (%) (Auto) 23.7, Monocytes (%) (Auto) 12.9H, Eosinophils (%) (Auto) 1.6, Basophils (%) (Auto) 0.8, Prothrombin Time 11.9H, Prothromb Time International Ratio 1.1, Activated Partial Thromboplast Time 34H, Sodium Level 138, Potassium Level 4.0, Chloride Level 104, Carbon Dioxide Level 27, Anion Gap 7, Blood Urea Nitrogen 11, Creatinine 1.2, Estimat Glomerular Filtration Rate > 60, Glucose Level 99, Calcium Level 8.7, Erythrocyte Sedimentation Rate 8, Lactic Acid Level 0.60, Total Bilirubin 0.7, Aspartate Amino Transf (AST/SGOT) 14L, Alanine Aminotransferase (ALT/SGPT) 21, Alkaline Phosphatase 92, C-Reactive Protein, Quantitative 8.6H, Total Protein 6.1L, Albumin 2.7L, Globulin 3.4, Albumin/Globulin Ratio 0.8L, Triglycerides Level 55, Cholesterol Level 170, LDL Cholesterol 119H, HDL Cholesterol 43, Cholesterol/HDL Ratio 4.0, Thyroid Stimulating Hormone (TSH) 1.250 Height (Feet): 6 Height (Inches): 5.00 Weight (Pounds): 330 General Appearance: alert EENT: normal ENT inspection Neck: normal alignment Cardiovascular: normal peripheral pulses, normal rate, regular rhythm Respiratory/Chest: chest wall non-tender, lungs clear, normal breath sounds Abdomen: normal bowel sounds, non tender, soft Extremities: normal inspection Edema: no edema noted Arm (L), no edema noted Arm (R), no edema noted Leg (L), no edema noted Leg (R), no edema noted Pedal (L), no edema noted Pedal (R), no edema noted Generalized Neurologic: responsive, motor weakness Skin: normal pigmentation, warm/dry Assessment/Plan Problem List: (1) DVT (deep venous thrombosis) ICD Codes: I82.409 - Acute embolism and thrombosis of unspecified deep veins of unspecified lower extremity SNOMED: [id number] Status: unchanged Assessment/Plan: anticoag heme f/u cbc bmp am pain control dc plan Clement Rodarte DO Nov 27, 2020 09:17
[2020-11-27] MEDS: Docusate 100mg cap ORAL SCH ×2 (09:43→15:16)
--- NOTE | 2020-11-27 10:44 | NUR ---
RD ASSESSMENT & RECOMMENDATIONS SEE CARE ACTIVITY FOR COMPLETE ASSESSMENT DAILY ESTIMATED NEEDS: Needs based on Cardiac, obese 109kg abw 20-23 kcals/kg 3607-5360 total kcals 1-1.5 g protein/kg 109-164 g total protein 25-30 mL/kg 6334-5700 total fluid mLs NUTRITION DIAGNOSIS: Altered nutrition related lab values r/t clinical status as evidenced y elev LDL 119, BMI 39.9. CURRENT DIET: Regular PO DIET RECOMMENDATIONS--->>> Cardiac diet ADDITIONAL RECOMMENDATIONS: 1) Diet edu/ wt loss (11/27) 2) Obtain a standing wt as able
--- NOTE | 2020-11-27 11:48 | NUR ---
INSURANCE CLINICALS FAXED TO [facility] [phone]
[2020-11-27 12:00] VITALS: BP 116/75
[2020-11-27] MEDS: HYDROcodone/Acetamin 5/325 tab ORAL PRN ×2 (15:16→21:55)
[2020-11-27 16:00] VITALS: BP 126/83
--- NOTE | 2020-11-27 17:04 | Diagnostic Imaging Report ---
. Indication: Reason For Exam: F/U Technique: One view of the chest Comparison: 08/21/2015 Findings: Lungs and pleural spaces are clear. Heart size is normal. No significant change Impression: No acute process
[2020-11-27 20:00] VITALS: BP 115/81
--- NOTE | 2020-11-27 20:00 | NUR ---
NURSE NOTES: Received patient awake in bed, resting, no s/s of acute distress, left leg smaller than previous night. Patient requested PRN medication for sleep and pain. VSS. Pedal pulses present. Bed low and locked, 2 side rails up, call light and belongings within reach.
[2020-11-27] MEDS: Enoxaparin 150mg Inj SUBQ SCH (20:07)
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
[2020-11-28] MEDS: HYDROcodone/Acetamin 5/325 tab ORAL PRN ×2 (03:49→13:49)
[2020-11-28 04:00] VITALS: BP 111/78
[2020-11-28 05:51] LABS: BASOPHILS % (AUTO) 1.1 % (0.0-2.0); EOSINOPHILS % (AUTO) 2.5 % (0.0-3.0); HEMATOCRIT 47.2 % (42.0-52.0); HEMOGLOBIN 14.6 G/DL (14.2-18.0); LYMPHOCYTES % (AUTO) 25.3 % (20.0-45.0); MEAN CORPUSCULAR VOLUME 84 FL (80-99); MONOCYTES % (AUTO) 13.7 % (1.0-10.0); NEUTROPHILS % (AUTO) 57.5 % (45.0-75.0); PLATELET COUNT 186 K/UL (150-450); RED BLOOD COUNT 5.64 M/UL (4.70-6.10); RED CELL DISTRIBUTION WIDTH 13.2 % (11.6-14.8); WHITE BLOOD COUNT 8.7 K/UL (4.8-10.8)
[2020-11-28 06:02] LABS: ANION GAP 7 mmol/L (5-15); BLOOD UREA NITROGEN 15 mg/dL (7-18); CALCIUM 8.7 MG/DL (8.5-10.1); CARBON DIOXIDE 27 MMOL/L (21-32); CHLORIDE 104 MMOL/L (98-107); CREATININE 1.1 MG/DL (0.55-1.30); SODIUM 138 MMOL/L (136-145)
--- NOTE | 2020-11-28 06:28 | Hematology/Onc Progress Note ---
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 --> There does appear to be some slight increase swelling to the right lower extremity compared to the left. Patient does not have any evidence of pulmonary embolism and does not have any respiratory difficulty or chest discomfort # Obesity --> recommend weight loss # Dvt ppx lovenox bid Appreciate consultation and christina Rn Subjective HEENT: Denies: no symptoms, eye pain, blurred vision, tearing, double vision, ear pain, ear discharge, nose pain, nose congestion, throat pain, throat swelling, mouth pain, mouth swelling, other Cardiovascular: Denies: no symptoms, chest pain, edema, irregular heart rate, lightheadedness, palpitations, syncope, other Respiratory: Denies: no symptoms, cough, shortness of breath, SOB with excertion, SOB at rest, sputum, wheezing, other Gastrointestinal/Abdominal: Denies: no symptoms, abdomen distended, abdominal pain, black stools, tarry stools, blood in stool, constipated, diarrhea, difficulty swallowing, nausea, poor appetite, poor fluid intake, rectal bleeding, vomiting, other Genitourinary: Denies: no symptoms, burning, discharge, frequency, flank pain, hematuria, incontinence, pain, urgency, other Neurologic/Psychiatric: Denies: no symptoms, anxiety, depressed, emotional problems, headache, numbness, paresthesia, pre-existing deficit, seizure, t ingling, tremors, weakness, other Endocrine: Denies: no symptoms, excessive sweating, flushing, intolerance to cold, intolerance to heat, increased hunger, increased thirst, increased urine, unexplained weight gain, unexplained weight loss, other Allergies: Coded Allergies: NO KNOWN ALLERGIES (Unverified Allergy, Unknown, 08/21/15) Subjective 11/27 unable to sleep overnight, meds reviewed, on lovenox 11/28 tolerating medications well, labs are noted Objective Objective Current Medications Medications (Trade) Dose Ordered Sig/Calos Route PRN Reason Start Time Stop Time Status Last Admin Dose Admin Acetaminophen (Tylenol) 650 mg Q4H PRN ORAL Temp >100.5 11/26/20 11:30 12/26/20 11:29 Acetaminophen/ Hydrocodone Bitart ([place] 5/325) 1 tab Q4H PRN ORAL Moderate Pain (Pain Scale 4-6) 11/26/20 11:30 12/03/20 11:29 11/28/20 03:49 Al Hydroxide/Mg Hydroxide (Mylanta II) 30 ml Q6H PRN ORAL dyspepsia 11/26/20 11:30 12/26/20 11:29 Dextrose (Dextrose 50%) 25 ml Q30M PRN IV Hypoglycemia 11/26/20 11:30 02/24/21 11:29 Dextrose (Dextrose 50%) 50 ml Q30M PRN IV Hypoglycemia 11/26/20 11:30 02/24/21 11:29 Dextrose/Sodium Chloride 1,000 ml @ 60 mls/hr [id number] IV 11/26/20 08:00 12/26/20 07:59 11/27/20 15:16 Diphenhydramine HCl (Benadryl) 25 mg Q6H PRN ORAL Itching 11/26/20 11:30 12/26/20 11:29 11/28/20 03:49 Docusate Sodium (Colace) 100 mg TWICE A DAY ORAL 11/26/20 18:00 12/26/20 17:59 11/27/20 15:16 Enoxaparin Sodium (Lovenox) 150 mg EVERY 12 HOURS SUBQ 11/27/20 21:00 02/25/21 20:59 11/27/20 20:07 Famotidine (Pepcid) 20 mg DAILY ORAL 11/27/20 09:00 02/25/21 08:59 11/27/20 09:43 Magnesium Hydroxide (Mom) 30 ml HSPRN PRN ORAL Constipation 11/26/20 11:30 12/26/20 11:29 Morphine Sulfate (Morphine Sulfate) 2 mg Q4H PRN IVP For Pain 11/26/20 05:45 12/03/20 05:44 11/27/20 23:31 Ondansetron HCl (Zofran) 4 mg Q6H PRN IVP Nausea & Vomiting 11/26/20 11:30 12/26/20 11:29 Temazepam (Restoril) 15 mg HSPRN PRN ORAL Insomnia 11/26/20 11:30 12/03/20 11:29 11/27/20 21:55 Last 24 Hour Vital Signs Date Time Temp Pulse Resp B/P (MAP) Pulse Ox O2 Delivery O2 Flow Rate FiO2 11/28/20 04:19 98.6 11/28/20 04:00 97.9 69 18 111/78 (89) 97 11/28/20 00:01 98.6 11/27/20 23:22 Room Air 11/27/20 22:25 98.6 11/27/20 20:00 97.3 81 20 115/81 (92) 97 11/27/20 16:00 98.6 84 20 126/83 (97) 97 11/27/20 12:00 97.9 71 18 116/75 (89) 97 11/27/20 09:00 Room Air 11/27/20 08:00 97.9 80 18 130/76 (94) 96 11/27/20 03:19 98.8 11/26/20 22:40 98.8 11/26/20 21:59 Room Air 11/26/20 21:26 98.8 11/26/20 20:00 97.9 75 18 122/75 (91) 98 11/26/20 16:00 98.8 77 18 113/78 (90) 98 11/26/20 12:00 98.8 67 18 119/62 (81) 94 11/26/20 09:00 Room Air 11/26/20 08:00 98.7 85 18 126/79 (95) 95 Intake and Output 11/27/20 11/28/20 19:00 07:00 Intake Total 1440 ml 450 ml Output Total 1000 ml 850 ml Balance 440 ml -400 ml Intake Oral 1440 ml 450 ml Output Urine Total 1000 ml 850 ml # Bowel Movements 1 Labs Test 11/25/20 22:50 11/26/20 09:20 11/26/20 12:20 11/27/20 05:50 White Blood Count 11.5 K/UL (4.8-10.8) 8.6 K/UL (4.8-10.8) 9.1 K/UL (4.8-10.8) Red Blood Count 6.22 M/UL (4.70-6.10) 5.61 M/UL (4.70-6.10) 5.68 M/UL (4.70-6.10) Hemoglobin 15.4 G/DL (14.2-18.0) 14.7 G/DL (14.2-18.0) 14.7 G/DL (14.2-18.0) Hematocrit 52.2 % (42.0-52.0) 47.3 % (42.0-52.0) 47.6 % (42.0-52.0) Mean Corpuscular Volume 84 FL (80-99) 84 FL (80-99) 84 FL (80-99) Mean Corpuscular Hemoglobin 24.8 PG (27.0-31.0) 26.2 PG (27.0-31.0) 25.9 PG (27.0-31.0) Mean Corpuscular Hemoglobin Concent 29.5 G/DL (32.0-36.0) 31.1 G/DL (32.0-36.0) 31.0 G/DL (32.0-36.0) Red Cell Distribution Width 13.9 % (11.6-14.8) 13.4 % (11.6-14.8) 13.1 % (11.6-14.8) Platelet Count 177 K/UL (150-450) 176 K/UL (150-450) 184 K/UL (150-450) Mean Platelet Volume 6.7 FL (6.5-10.1) 7.0 FL (6.5-10.1) 6.6 FL (6.5-10.1) Neutrophils (%) (Auto) 68.0 % (45.0-75.0) 57.3 % (45.0-75.0) 61.2 % (45.0-75.0) Lymphocytes (%) (Auto) 19.9 % (20.0-45.0) 27.5 % (20.0-45.0) 23.7 % (20.0-45.0) Monocytes (%) (Auto) 9.6 % (1.0-10.0) 11.5 % (1.0-10.0) 12.9 % (1.0-10.0) Eosinophils (%) (Auto) 1.7 % (0.0-3.0) 2.9 % (0.0-3.0) 1.6 % (0.0-3.0) Basophils (%) (Auto) 0.8 % (0.0-2.0) 0.9 % (0.0-2.0) 0.8 % (0.0-2.0) Sodium Level 140 MMOL/L (136-145) 140 MMOL/L (136-145) 138 MMOL/L (136-145) Potassium Level 4.0 MMOL/L (3.5-5.1) 3.8 MMOL/L (3.5-5.1) 4.0 MMOL/L (3.5-5.1) Chloride Level 102 MMOL/L (98-107) 105 MMOL/L (98-107) 104 MMOL/L (98-107) Carbon Dioxide Level 31 MMOL/L (21-32) 29 MMOL/L (21-32) 27 MMOL/L (21-32) Anion Gap 7 mmol/L (5-15) 6 mmol/L (5-15) 7 mmol/L (5-15) Blood Urea Nitrogen 15 mg/dL (7-18) 14 mg/dL (7-18) 11 mg/dL (7-18) Creatinine 1.4 MG/DL (0.55-1.30) 1.2 MG/DL (0.55-1.30) 1.2 MG/DL (0.55-1.30) Estimat Glomerular Filtration Rate > 60 mL/min (>60) > 60 mL/min (>60) > 60 mL/min (>60) Glucose Level 98 MG/DL (74-106) 97 MG/DL (74-106) 99 MG/DL (74-106) Calcium Level 9.6 MG/DL (8.5-10.1) 9.0 MG/DL (8.5-10.1) 8.7 MG/DL (8.5-10.1) Total Bilirubin 0.8 MG/DL (0.2-1.0) 0.7 MG/DL (0.2-1.0) Aspartate Amino Transf (AST/SGOT) 22 U/L (15-37) 14 U/L (15-37) Alanine Aminotransferase (ALT/SGPT) 28 U/L (12-78) 21 U/L (12-78) Alkaline Phosphatase 111 U/L (46-116) 92 U/L (46-116) Total Protein 7.3 G/DL (6.4-8.2) 6.1 G/DL (6.4-8.2) Albumin 3.4 G/DL (3.4-5.0) 2.7 G/DL (3.4-5.0) Globulin 3.9 g/dL 3.4 g/dL Albumin/Globulin Ratio 0.9 (1.0-2.7) 0.8 (1.0-2.7) Prothrombin Time 12.2 SEC (9.30-11.50) 11.9 SEC (9.30-11.50) Prothromb Time International Ratio 1.1 (0.9-1.1) 1.1 (0.9-1.1) Activated Partial Thromboplast Time 30 SEC (23-33) 34 SEC (23-33) Urine Color Pale yellow Urine Appearance Clear Urine pH 6.5 (4.5-8.0) Urine Specific [place] 1.005 (1.005-1.035) Urine Protein Negative (NEGATIVE) Urine Glucose (UA) Negative (NEGATIVE) Urine Ketones Negative (NEGATIVE) Urine Blood Negative (NEGATIVE) Urine Nitrite Negative (NEGATIVE) Urine Bilirubin Negative (NEGATIVE) Urine Urobilinogen Normal MG/DL (0.0-1.0) Urine Leukocyte Esterase Negative (NEGATIVE) Urine RBC 0-2 /HPF (0 - 0) Urine WBC 0-2 /HPF (0 - 0) Urine Squamous Epithelial Cells None /LPF (NONE/OCC) Urine Bacteria None /HPF (NONE) Urine Opiates Screen Negative (NEGATIVE) Urine Barbiturates Screen Negative (NEGATIVE) Phencyclidine (PCP) Screen Negative (NEGATIVE) Urine Amphetamines Screen Negative (NEGATIVE) Urine Benzodiazepines Screen Negative (NEGATIVE) Urine Cocaine Screen Negative (NEGATIVE) Urine Marijuana (THC) Screen Negative (NEGATIVE) Erythrocyte Sedimentation Rate 8 MM/HR (0-15) Lactic Acid Level 0.60 mmol/L (0.4-2.0) C-Reactive Protein, Quantitative 8.6 mg/dL (0.00-0.90) Triglycerides Level 55 MG/DL (30-150) Cholesterol Level 170 MG/DL (< 200) LDL Cholesterol 119 mg/dL (<100) HDL Cholesterol 43 MG/DL (40-60) Cholesterol/HDL Ratio 4.0 (3.3-4.4) Thyroid Stimulating Hormone (TSH) 1.250 uiU/mL (0.358-3.740) Test 11/28/20 05:35 White Blood Count 8.7 K/UL (4.8-10.8) Red Blood Count 5.64 M/UL (4.70-6.10) Hemoglobin 14.6 G/DL (14.2-18.0) Hematocrit 47.2 % (42.0-52.0) Mean Corpuscular Volume 84 FL (80-99) Mean Corpuscular Hemoglobin 25.8 PG (27.0-31.0) Mean Corpuscular Hemoglobin Concent 30.9 G/DL (32.0-36.0) Red Cell Distribution Width 13.2 % (11.6-14.8) Platelet Count 186 K/UL (150-450) Mean Platelet Volume 6.6 FL (6.5-10.1) Neutrophils (%) (Auto) 57.5 % (45.0-75.0) Lymphocytes (%) (Auto) 25.3 % (20.0-45.0) Monocytes (%) (Auto) 13.7 % (1.0-10.0) Eosinophils (%) (Auto) 2.5 % (0.0-3.0) Basophils (%) (Auto) 1.1 % (0.0-2.0) Sodium Level 138 MMOL/L (136-145) Potassium Level 4.0 MMOL/L (3.5-5.1) Chloride Level 104 MMOL/L (98-107) Carbon Dioxide Level 27 MMOL/L (21-32) Anion Gap 7 mmol/L (5-15) Blood Urea Nitrogen 15 mg/dL (7-18) Creatinine 1.1 MG/DL (0.55-1.30) Estimat Glomerular Filtration Rate > 60 mL/min (>60) Glucose Level 96 MG/DL (74-106) Calcium Level 8.7 MG/DL (8.5-10.1) Height (Feet): 6 Height (Inches): 5.00 Weight (Pounds): 330 Objective Physical Exam Sp02 EP Interpretation: reviewed, normal General Appearance: normal inspection, well appearing Head: atraumatic ENT: normal ENT inspection, hearing grossly normal, normal voice Neck: normal inspection, full range of motion, supple, no bony tend Respiratory: normal inspection, lungs clear, normal breath sounds Cardiovascular: regular rate, rhythm, no edema Gastrointestinal: normal inspection Genitourinary: no CVA tenderness Musculoskeletal: normal inspection, back normal, normal range of motion Neurologic: alert, motor strength/tone normal, crust sorter III-XII Psychiatric: normal inspection, judgement/insight normal Zane Cohen MD Nov 28, 2020 06:28
--- NOTE | 2020-11-28 07:15 | NUR ---
NURSE NOTES Received patient comfortably resting on bed, asleep, but easily arousable, no sign of distress, IVF patent and infusing well, on fall precaution plan of care wAs discussed verbalized understanding 4 P's in progress, call light w/n easy reach MUSHTAQ WELLS
--- NOTE | 2020-11-28 07:26 | NUR ---
NURSE NOTES: Report given to MUSHTAQ Holley
[2020-11-28 08:15] VITALS: BP 107/57
[2020-11-28] MEDS: D5 1/2NS 1,000 ML IV SCH (08:16)
[2020-11-28] MEDS: Docusate 100mg cap ORAL SCH ×2 (08:16→17:11)
[2020-11-28] MEDS: Enoxaparin 150mg Inj SUBQ SCH (08:17)
[2020-11-28 11:48] VITALS: BP 115/64
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
--- NOTE | 2020-11-28 13:13 | General Progress Note ---
Subjective Constitutional: Reports: weakness Allergies: Coded Allergies: NO KNOWN ALLERGIES (Unverified Allergy, Unknown, 08/21/15) All Systems: reviewed and negative except above Subjective sl groin pain Objective Last 24 Hour Vital Signs Date Time Temp Pulse Resp B/P (MAP) Pulse Ox O2 Delivery O2 Flow Rate FiO2 11/28/20 11:48 97.2 89 19 115/64 (81) 97 11/28/20 08:15 98.7 82 18 107/57 (74) 97 11/28/20 08:15 Room Air 11/28/20 04:19 98.6 11/28/20 04:00 97.9 69 18 111/78 (89) 97 11/28/20 00:01 98.6 11/27/20 23:22 Room Air 11/27/20 22:25 98.6 11/27/20 20:00 97.3 81 20 115/81 (92) 97 11/27/20 16:00 98.6 84 20 126/83 (97) 97 Intake and Output 11/27/20 11/28/20 19:00 07:00 Intake Total 1440 ml 450 ml Output Total 1000 ml 850 ml Balance 440 ml -400 ml Intake Oral 1440 ml 450 ml Output Urine Total 1000 ml 850 ml # Bowel Movements 1 Laboratory Tests 11/28/20 05:35: White Blood Count 8.7, Red Blood Count 5.64, Hemoglobin 14.6, Hematocrit 47.2, Mean Corpuscular Volume 84, Mean Corpuscular Hemoglobin 25.8L, Mean Corpuscular Hemoglobin Concent 30.9L, Red Cell Distribution Width 13.2, Platelet Count 186, Mean Platelet Volume 6.6, Neutrophils (%) (Auto) 57.5, Lymphocytes (%) (Auto) 25.3, Monocytes (%) (Auto) 13.7H, Eosinophils (%) (Auto) 2.5, Basophils (%) (Auto) 1.1, Sodium Level 138, Potassium Level 4.0, Chloride Level 104, Carbon Dioxide Level 27, Anion Gap 7, Blood Urea Nitrogen 15, Creatinine 1.1, Estimat Glomerular Filtration Rate > 60, Glucose Level 96, Calcium Level 8.7 Height (Feet): 6 Height (Inches): 5.00 Weight (Pounds): 330 General Appearance: alert EENT: normal ENT inspection Neck: normal alignment Cardiovascular: normal peripheral pulses, normal rate, regular rhythm Respiratory/Chest: chest wall non-tender, lungs clear, normal breath sounds Abdomen: normal bowel sounds, non tender, soft Extremities: normal inspection Edema: no edema noted Arm (L), no edema noted Arm (R), no edema noted Leg (L), no edema noted Leg (R), no edema noted Pedal (L), no edema noted Pedal (R), no edema noted Generalized Neurologic: responsive, motor weakness Skin: normal pigmentation, warm/dry Assessment/Plan Problem List: (1) DVT (deep venous thrombosis) ICD Codes: I82.409 - Acute embolism and thrombosis of unspecified deep veins of unspecified lower extremity SNOMED: [id number] Status: unchanged Assessment/Plan: anticoag heme f/u cbc bmp am pain control dc plan Clement Rodarte DO Nov 28, 2020 13:12
[2020-11-28] MEDS ORDERED: ELIQUIS5 MG ORAL (13:43)
--- NOTE | 2020-11-28 15:41 | NUR ---
[employer] FAXED TO [facility] [phone]
[2020-11-28 16:00] VITALS: BP 119/64
--- NOTE | 2020-11-28 16:25 | NUR ---
nurse notes Chiquis MARADIAGA called stated patient ok to discharge, Charge made aware, patient agreed with the plan of care yaima wei
--- NOTE | 2020-11-28 17:11 | NUR ---
nurse notes Discharge to home obtained, discharge instruction packet handed to patient , discharge teaching done including medication, follow up appointment, all questions answered verbalized understanding yaima wei
--- NOTE | 2020-11-28 17:24 | NUR ---
Nurse notes Discharged in stable condition ,with all belongins taken ,wheeled to the parking area, discharged via eriberto llamas rn
--- NOTE | 2020-11-29 10:29 | Discharge Summary ---
Discharge Summary Discharge Summary _ Date of admission: 11/25/2020 Date of discharge: 11/28/[address] Rodarte History of Present Illness and Brief Hospital Course Mr. Del Cid is a 40-year-old male who presented to the ED for worsening right- sided lower extremity discomfort. Patient reported history of DVT. Patient was not on any medications. Venous duplex ultrasound of the right lower extremity revealed a large occlusive DVT from proximal femoral vein extending to the popliteal vein. Patient was given a dose of subcutaneous therapeutic dose Lovenox in ER and was admitted to the hospital for further management. Patient was continued on Lovenox twice daily therapy. Patient was recommended to have hypercoagulable work-up once this acute episode resolves. Patient also had leukocytosis which was likely reactive process to patient's DVT. Patient did not have any evidence of pulmonary embolism and remained stable on room air. Patient did not have any respiratory concerns or chest discomfort. Patient was instructed to follow-up with Dr. Cohen upon discharge for continued care. Patient was medically stable for discharge and was discharged home on 11/28/2020. Consultants: Hematology oncology Dr. Cohen Surgery Dr. Bean Discharge Condition Stable Discharge Activity As tolerated Discharge Diet Regular Final diagnoses Right lower extremity DVT Leukocytosis NARA Chronic varicose veins in legs Obesity with BMI of 39.1 I have been assigned to dictate discharge summary for this account. I was not involved in the patient's management Castro Garcia Nov 29, 2020 10:29
== END 2020-11-28 17:25 | disposition home or self-care (01) | DRG 300 ==
LOC: EMR 21:20 → 4E 23:00 → EDBEDREQ 23:21
DX: I82.431 Acute embolism and thrombosis of right popliteal vein (principal); N17.9 Acute kidney failure, unspecified; I82.411 Acute embolism and thrombosis of right femoral vein; E66.9 Obesity, unspecified; Z68.39 Body mass index [BMI] 39.0-39.9, adult; I83.93 Asymptomatic varicose veins of bilateral lower extremities
CPT/HCPCS: 36415; 71045; 80048; 80053; 80061; 80307; 81001; 83605; 84443; 85025; 85610; 85651; 85730; 86140; 93971; 99285